=== PATIENT | female | born 1990 | race Two or more races ===

== ENCOUNTER → 2016-11-12 | Outpatient (REF) | payer OTHER, MEDICAID | LOC: EEVIPCON 16:22 → M SFHCLERA 16:22 | PROVIDERS: ATTEND Physician Assistant | DX: R30.0 Dysuria (principal) ==

== ENCOUNTER → 2016-12-25 | Outpatient (REF) | payer OTHER, MEDICAID | LOC: M SFHCLERA 14:12 | PROVIDERS: ATTEND Nurse Practitioner Family | DX: R39.9 Unspecified symptoms and signs involving the genitourinary system (principal) ==

== ENCOUNTER → 2017-02-01 | Outpatient (REF) | payer OTHER, MEDICAID | LOC: M SFHCLERA 10:13 | PROVIDERS: ATTEND Physician Assistant | DX: N39.0 Urinary tract infection, site not specified (principal) ==

== ENCOUNTER → 2018-12-23 | Outpatient (REF) | payer OTHER | LOC: M SFHCLERA 12:23 | PROVIDERS: ATTEND Physician Assistant | DX: J02.9 Acute pharyngitis, unspecified (principal) ==